=== PATIENT | female | born 1940 | race Caucasian/White ===

== ENCOUNTER 2017-12-19 10:57 | Emergency (ER) | payer OTHER ==
[2017-12-19 11:23] VITALS: BP 183/81
--- NOTE | 2017-12-19 12:18 | EDPHY ---
H & P Time Seen by Provider: 12/19/17 12:17 HPI/ROS: Chief complaint. Left arm hurting HPI. 77-year-old female visiting from [place] with left elbow pain for 6 weeks. Some discomfort in the left axilla and left wrist as well. 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 Patient thinks she may be twisted her left arm while doing fall cleaning. It hurts to move her left elbow. She now does not have shoulder or neck pain. She has no chest pain or shortness of breath or fever. Symptoms are worse with moving her left elbow but not with exertion or deep breathing. Visiting from [place] and here for help caring for new grandchild and will be here until January 27. She had previously been prescribed prednisone which increased her blood sugar so she quit taking it. She has an appointment today for physical therapy. She has been using Tylenol for discomfort ROS 10 systems were reviewed and negative with the exception of the elements mentioned in the history of present illness Past Medical/Surgical History: Past medical history significant colon cancer, bladder surgery, non insulin- dependent diabetes Social History: Single, nonsmoker, no alcohol Smoking Status: Never smoked Physical Exam: General Appearance: Alert well-developed female mild distress vital signs are stable Eyes: Pupils equal and round no pallor or injection. ENT, Mouth: Mucous membranes are moist. Respiratory: There are no retractions, lungs are clear to auscultation. Cardiovascular: Regular rate and rhythm. Gastrointestinal: Abdomen is soft and nontender, no masses, bowel sounds normal. Neurological: Awake and alert, sensory and motor exams grossly normal. Skin: Warm and dry, no rashes. Musculoskeletal: Neck is supple nontender. Extremities left elbow has normal appearance. There is no swelling or deformity. However flexion extension supination and pronation cause pain to the left elbow. Psychiatric: Patient is oriented X 3, there is no agitation. Constitutional: Initial Vital Signs Temperature (C) 37.0 C 12/19/17 11:18 Heart Rate 88 12/19/17 11:18 Respiratory Rate 16 12/19/17 11:18 Blood Pressure 183/81 H 12/19/17 11:18 O2 Sat (%) 94 12/19/17 11:18 O2 Delivery Mode Room Air Allergies/Adverse Reactions: metformin Allergy (Verified 12/19/17 11:17) Sulfa (Sulfonamide Antibiotics) Allergy (Verified 12/19/17 11:17) Home Medications: Medication Instructions Recorded Lidocain/Me-Salicyl/Caps/Menth 1 each TP DAILY #12 adh..patch 12/19/17 [Medi-Patch with Lidocaine] Medical Decision Making - Diagnostics Imaging Results: Imaging Impressions Elbow X-Ray 12/19/17 11:51 Impression: Negative. No fracture, arthropathy, or effusion. X-ray left elbow interpreted by me is negative Procedures: Lidocaine patch, sling ED Course/Re-evaluation: Patient and I discussed imaging results, treatment plan including criteria for return importance of follow-up and further evaluation. She expresses understanding and agreement Differential Diagnosis: This appears to be chronic elbow pain though the etiology is not clear. There is no evidence of infection or swelling. No deformity or fracture or dislocation noted. I do not think this represents acute coronary syndrome. Departure - Departure Disposition: Home, Routine, Self-Care Clinical Impression: Left elbow pain Condition: Good Instructions: Elbow Sprain (ED) Additional Instructions: Use lidocaine patch daily for pain control. Ibuprofen 4-600 mg every 6 hr for discomfort. Sling for comfort. Return for worsening symptoms. Follow-up with physical therapy and Orthopedics for further evaluation Referrals: Patient,NotPresent [Primary Care Provider] - As per Instructions Yves Madison MD [Medical Doctor] - 2-3 days, call for appt. Prescriptions: Lidocain/Me-Salicyl/Caps/Menth [Medi-Patch with Lidocaine] 1 each TP DAILY #12 adh..patch
[2017-12-19] MEDS ORDERED: LIDOCAINE 4%/MENTHOL 1% PATCH TD ONE (12:31)
[2017-12-19] MEDS ORDERED: PATCH REMOVAL 1 EA PATCH TD SCH (21:00)
== END 2017-12-19 12:55 | disposition home or self-care (01) ==
DX: M25.522 Pain in left elbow (principal); E11.9 Type 2 diabetes mellitus without complications; Z85.038 Personal history of other malignant neoplasm of large intestine